=== PATIENT | female | born 1985 | race Caucasian/White ===

== ENCOUNTER → 2017-06-28 | Outpatient (CLI) | payer BC ==
[~2017-06-28] MED LIST: ACHYD1T PO; IBP800T PO
--- NOTE | 2017-06-28 08:40 | Diagnostic Imaging Report ---
PROCEDURE: US Gallbladder. TECHNIQUE: Multiple real-time grayscale images were obtained over the right upper quadrant in various projections. INDICATION: Right upper quadrant pain. FINDINGS: The pancreas appears unremarkable. The liver is diffusely homogeneous with no focal lesion. Hepatopedal flow in the portal vein is seen. The gallbladder demonstrates no stones or wall thickening. The CBD is 3 mm in caliber. Sonographic Zafar's sign is reportedly negative. The right kidney is 10.8 CM in length with no hydronephrosis or focal lesion. IMPRESSION: Unremarkable exam. Dictated by: Dictated on workstation # [id number]
== END ==
LOC: RAD 07:40
PROVIDERS: ATTEND Nurse Practitioner Family
DX: R10.11 Right upper quadrant pain (principal)
CPT/HCPCS: 76705

== ENCOUNTER → 2017-07-28 | Outpatient (CLI) | payer BC ==
[2017-07-28] MEDS: CATHETER FLUSH 10 ML SYR IV PRN (11:52)
--- NOTE | 2017-07-28 14:45 | Diagnostic Imaging Report ---
HEPATOBILIARY SCAN DATE: July 28, 2017. INDICATION: 31-year-old female, right upper quadrant abdominal pain. PROCEDURE: 5.45 mCi of Tc-99m Choletec was administered intravenously and serial anterior planar images over the liver and upper abdomen were obtained. FINDINGS: There is clearance of background activity by the liver indicating hepatocyte function. There is radiotracer excretion into the bile ducts with prompt filling of the gallbladder. There is radiotracer extension into the small bowel. Ensure plus was administered for calculation of gallbladder ejection fraction. Gallbladder ejection fraction was calculated to be 48%. IMPRESSION: Normal hepatobiliary scan. No evidence of acute or chronic cholecystitis. Dictated by: Dictated on workstation # [id number]
== END ==
LOC: RAD 11:31
PROVIDERS: ATTEND Nurse Practitioner Family
DX: R10.11 Right upper quadrant pain (principal)
CPT/HCPCS: 78227

== ENCOUNTER → 2017-08-18 | Outpatient (CLI) | payer BC ==
--- NOTE | 2017-08-18 08:15 | Diagnostic Imaging Report ---
PROCEDURE: CT abdomen and pelvis without contrast. TECHNIQUE: Multiple contiguous axial images were obtained through the abdomen and pelvis without the use of intravenous contrast. INDICATION: Right lower quadrant pain 2 months duration, accompanied by nausea. FINDINGS: The gallbladder appeared normal. The liver parenchyma unremarkable at this unenhanced exam. There is a nonfocal spleen is normal in size. The pancreas and peripancreatic fat unremarkable. There is no adrenal mass. There are no opaque kidney stones, there is no hydronephrosis and there is no perinephric edema. I'm unable to identify the appendix on the axial or reconstruction views however there is no pericecal or right lower quadrant inflammatory process to suggest an underlying inflamed appendix. Trace amount of pelvic free fluid in the cul-de-sac unremarkable in a female patient of this age and likely physiologic. The uterus and adnexa unremarkable. Urinary bladder unremarkable. No abdominal wall defect or hernia. Lung bases and the osseous structures nonacute. There is no bowel, biliary or urinary tract obstruction. No pneumatosis or free gas. No aneurysm or adenopathy. The osseous structures and the lung bases were nonacute. IMPRESSION: Unremarkable noncontrast enhanced abdominal pelvic CT. Trace free fluid believed physiologic. No inflammatory process, obstructive features or acute pathology identified. Dictated by: Dictated on workstation # [id number]
== END ==
LOC: RAD 07:32
PROVIDERS: ATTEND Family Medicine
DX: R10.31 Right lower quadrant pain (principal); R10.32 Left lower quadrant pain; R11.0 Nausea
CPT/HCPCS: 74176